=== PATIENT | male | born 1980 | race Caucasian/White ===

== ENCOUNTER 2017-12-03 13:57 | Emergency (ER) | payer SELFPAY ==
[~2017-12-03] VITALS: Ht 182.9 cm; Wt 70.4 kg
[2017-12-03] MEDS ORDERED: IBUPROFEN600 MG PO (15:51)
[2017-12-03] MEDS ORDERED: FLEXERIL PO (15:51)
[2017-12-03 15:55] VITALS: BP 116/70
== END 2017-12-03 15:55 | disposition home or self-care (01) | DRG 563 ==
LOC: ED 13:57
DX: S46.912A Strain of unspecified muscle, fascia and tendon at shoulder and upper arm level, left arm, initial encounter (principal)